=== PATIENT | male | born 1950 | race African-American/Black ===

== ENCOUNTER 2016-12-25 06:39 | Day surgery (SDC) | payer MEDICARE, OTHER ==
[~2016-12-25 06:39] MED LIST: LIDOCAINE 0.5% INJ-PF (5 MG/ML) 50 ML SDV SUBCUT PRN; MITOMYCIN OPH SOLN 0.02% 2 ML OP PRN; RINGERS SOLUTION,LACTATED 500 ML IV PRN; TETRACAINE HCL 0.5% OPH SOLN 0.6 ML DROPERETTE OD PRN; TETRACAINE HCL 0.5% OPH SOLN 2 ML ONE
[2016-12-25] MEDS ORDERED: FENTANYL CITRATE INJ/PF 100 MCG/2 ML AMPUL ONE (06:45)
[2016-12-25] MEDS ORDERED: MIDAZOLAM 2 MG/2 ML INJ ONE (06:45)
[2016-12-25] MEDS: CYCLOPENTOLATE 0.2%/PHENYLEPHRINE 1% OPH SOLN 2 ML OD PRN ×3 (07:03→07:23)
[2016-12-25] MEDS: TETRACAINE HCL 0.5% OPH SOLN 2 ML OD PRN ×3 (07:03→07:43)
[2016-12-25] MEDS: BESIFLOXACIN HCL 0.6% OPH SUSP 5 ML BOTTLE OD PRN ×3 (07:03→07:23)
[2016-12-25] MEDS ORDERED: LIDOCAINE 2% INJ (20 MG/ML) 20 ML MDV ONE (07:15)
[2016-12-25] MEDS ORDERED: BUPIVACAINE HCL 0.75% INJ/PF (7.5 MG/1 ML) 10 ML SDV ONE (07:15)
[2016-12-25] MEDS ORDERED: POVIDONE-IODINE 5% OPH PREP SOLN 30 ML ONE (07:15)
[2016-12-25] MEDS ORDERED: TOBRAMYCIN SULFATE/DEXAMETH OPH OINTMENT 3.5 GM ONE (07:15)
[2016-12-25] MEDS ORDERED: HYALURONIDASE INJ 150 UNIT/1 ML VIAL ONE (07:16)
[2016-12-25] MEDS ORDERED: PROPOFOL INJ 200 MG/20 ML VIAL IV ONE (07:30)
[2016-12-26] MEDS ORDERED: TETRACAINE HCL 0.5% OPH SOLN 0.6 ML DROPERETTE OD PRN (05:00)
--- NOTE | 2016-12-29 13:22 | [facility] OPERATIVE REPORT E ---
[facility] Operative Report NAME: PADMINI CACERES AGE: 66Y DATE OF SURGERY: 12/25/2016 ROOM: PREOPERATIVE DIAGNOSIS: Pterygium of the right eye. POSTOPERATIVE DIAGNOSIS: Pterygium of the right eye. OPERATION: Pterygium excision with amniotic membrane graft and mitomycin C of the right eye. SURGEON: LAURA BRADFORD M.D. ANESTHESIA: Retrobulbar block with 2% lidocaine with 0.75% Marcaine in a 50/50 mixture with 100 units of Vitrase. Anesthesia also included topical. ESTIMATED BLOOD LOSS: Less than 2 mL. COMPLICATIONS: None. DESCRIPTION OF OPERATIVE REPORT: After obtaining appropriate informed consent, the right eye was prepped in a sterile fashion. A retrobulbar block was performed prior to proceeding with the cleaning of the face with Betadine. Following this, attention was directed to the pterygium that was located nasally. An 8-0 Vicryl traction suture was used to clear corneal temporally to expose the pterygium further. The area to be excised was outlined with a skin marker. Following this, the remaining retrobulbar block solution was injected subconjunctivally with a 25 gauge needle to dissect the pterygium out from the underlying conjunctivae and sclera. A Issac with 0.5 forceps was used to dissect along the pre-marked skin markings being careful to elevate the pterygium to avoid the medial rectus. Following this the cornea was smoothed out with a Craig blade. Hemostasis was achieved with cautery and the area was dissected down to bare sclera and undermining the tenons from the conjunctivae. Following this, mitomycin C soaked sponges were placed along the edges of the margins and allowed to soak for approximately 2 minutes. These were removed and the area was irrigated copiously. The defect was measured with a caliper and appropriate amount of dried amniotic membrane was cut and placed on the scleral bed. Tisseel glue was then applied and the graft was smoothed over with overlapping conjunctivae and found to be in excellent position. The traction suture was removed from the eye and TobraDex ointment was applied as well as a pressure patch and the patient woke up in postop recovery in stable condition. DICTATING PHYSICIAN: LAURA BRADFORD M.D. [id number] PHY#: [id number] ID: [id number] JOB#: [id number] ACCT: [id number] cc:LAURA BRADFORD M.D. > SHANE
--- NOTE | 2016-12-29 13:27 | [facility] DISCHARGE SUMMARY E ---
[facility] Discharge Summary NAME: PADMINI CACERES AGE: 66Y ADMITTED: 12/25/2016 DISCHARGED: 12/25/2016 HOSPITAL COURSE: This is a 66-year-old male who underwent pterygium excision for a progressive pterygium of the right eye growing towards the visual axis. PROCEDURE: Pterygium excision with amniotic membrane and mitomycin C of the right eye. INDICATIONS: He underwent surgery because it was interfering with his visual field and causing it to feel irritated. DISCHARGE INSTRUCTIONS: He is to be on a regular diet. No bending at his waist. No heavy lifting. He should take his pressure patch off in 24 hours and start using his TobraDex ointment 3 times a day and see me for a 1 week visit. He should sleep with his rigid shield at night and call me if he has any concerns. DICTATING PHYSICIAN: LAURA BRADFORD M.D. [id number] PHY#: [id number] ID: [id number] JOB#: [id number] ACCT: [id number] cc:LAURA BRADFORD M.D. >
== END 2016-12-25 09:42 | disposition home or self-care (01) ==
LOC: SC 06:39
PROVIDERS: ATTEND Internal Medicine
PROC: 08BSXZZ Excision of Right Conjunctiva, External Approach (ICD-10-PCS; principal; 2016-12-25 07:30)
DX: H11.041 Peripheral pterygium, stationary, right eye (principal); I10 Essential (primary) hypertension; F17.290 Nicotine dependence, other tobacco product, uncomplicated; Z95.2 Presence of prosthetic heart valve
CPT/HCPCS: 65426; 88304 ×2; J2250; J3490 ×4; J3010; J2704; J9280; J3470; 140